=== PATIENT | female | born 1935 | race African-American/Black ===

== ENCOUNTER 2017-05-19 09:17 | Inpatient (IN) | payer MEDICARE ==
[~2017-05-19] VITALS: Ht 167.6 cm; Wt 83.5 kg
--- NOTE | ~2017-05-19 | CN ---
Consultation Report [address] [place]. [address] NAME: MANUEL MCGUIRE : 37 STATUS : ADM IN PAT#: [id number] AGE: 81 ADM/REG DATE : 05/20/17 MR#: [id number] REPORT SERV DATE: 05/20/17 DICTATED BY: NESSA ANDUJAR DATE: 05/20/17 REPORT STATUS : Draft TRANSCRIBED BY: MODL DATE: 05/20/17 PULMONARY CONSULTATION DATE OF CONSULTATION: 05/20/2017 REASON FOR CONSULTATION: Pulmonary consulted due to abnormal chest CT scan and pleural effusion. HISTORY OF PRESENT ILLNESS: Ms. Mcguire is an 81-year-old black female, lifelong nonsmoker, with a history of moderate pulmonary hypertension as well as congestive heart failure/cardiomyopathy, who was admitted complaining of two to three days of increasing lower extremity edema and a vague complaint of difficulty sleeping. As part of her admission workup, she had a chest x-ray and a CT scan of the chest that revealed a moderate right pleural effusion and a possible lung mass. So, pulmonary was consulted for assistance. The patient denies other complaints. She denies pulmonary symptoms including shortness of breath, cough, fever, chills, night sweats, sputum production, hemoptysis, or wheezing. She reports a good appetite with ongoing recent weight gain. She denies prior pulmonary diagnosis or outpatient pulmonary medications. PAST MEDICAL HISTORY: 1. Lifelong nonsmoker. 2. Moderate pulmonary hypertension. 3. Cardiomyopathy/congestive heart failure with recent echocardiogram revealing an ejection fraction of 36% (04/24/2016). 4. Moderate tricuspid regurgitation. 5. Hypertension. 6. Diabetes mellitus. 7. Previous basal ganglia stroke with some residual speech deficits and vague left-sided weakness. 8. Multinodular goiter with several large nodules noted on thyroid ultrasound done on 05/10/2017. Outpatient biopsy was planned. 9. Atrial fibrillation, on chronic anticoagulation-now on aspirin only. 10.Chronic kidney disease. 11.Appendectomy. 12.Previous toe amputation. 13.Partial colectomy secondary to large bowel obstruction. 14.Hysterectomy. FAMILY HISTORY: She denies a family history of pulmonary diseases. Consultation Report [address] [place]. [address] NAME: MANUEL MCGUIRE : 37 STATUS : ADM IN [facility]#: [id number] AGE: 81 ADM/REG DATE : 05/20/17 MR#: [id number] REPORT SERV DATE: 05/20/17 DICTATED BY: NESSA ANDUJAR DATE: 05/20/17 REPORT STATUS : Draft TRANSCRIBED BY: KAIDEN DATE: 05/20/17 SOCIAL HISTORY: She is a lifelong nonsmoker. She denies past/present drug use, chewing tobacco, occupational exposures, or ethanol intake. She is a -her son three years ago. She had nine children, but currently has five living daughters only. MEDICATIONS: Outpatient and inpatient medications were reviewed and are as documented in the record. Notably, she is on no pulmonary medications as an outpatient. She has been on Lasix 60 mg once daily and aspirin 81 mg twice daily. ALLERGIES: SHE DENIES MEDICATION ALLERGIES. REVIEW OF SYSTEMS: A 10-point system review was conducted and is remarkable for the symptoms as described in the history of present illness. It is notable that she has no dysphagia symptoms. She denies symptoms of obstructive sleep apnea. She denies GERD symptoms. PHYSICAL EXAMINATION: VITAL SIGNS: Temperature 97.0 degrees, heart rate 62, blood pressure 152/71, respiratory rate 20, room air oxygen saturation 96%. GENERAL: Pleasant elderly black female. Appears alert, oriented, no apparent distress. HEENT: Normocephalic. Atraumatic. There is no scleral icterus. The conjunctivae are clear. The oropharynx is clear. NECK: Supple. No lymphadenopathy was noted. LUNGS: Good effort. There are diminished breath sounds throughout with the right being worse than the left. The lungs are clear to auscultation bilaterally. HEART: Irregularly irregular. ABDOMEN: Soft. Nontender. Nondistended. There are normal bowel sounds in all four quadrants. BILATERAL EXTREMITIES: There is trace pretibial edema, but no cyanosis or clubbing were noted. SKIN: No rashes were noted. NEUROLOGICAL: A very limited exam was conducted. She has minimal left-sided weakness. She also has a notable speech defect. LABORATORY RESULTS: The labs were reviewed and are as documented in the record. Notable labs include a white blood cell count of 6.7. The procalcitonin is 0.08. The BNP is 843.2. The troponin on admission was 0.10 that has decreased to 0.08 on repeat check. IMAGING: The chest x-ray done this admission revealed a right pleural effusion, but no infiltrates, nodules, or cardiomegaly. A CT scan of the chest without contrast done this admission revealed a moderate right pleural effusion. There is a right infrahilar opacity/consolidation. There is mild cardiomegaly. The thyroid gland is enlarged. Consultation Report [place] [address] [place]. [address] NAME: MANUEL MCGUIRE : 37 STATUS : ADM IN PAT#: [id number] AGE: 81 ADM/REG DATE : 05/20/17 MR#: [id number] REPORT SERV DATE: 05/20/17 DICTATED BY: NESSA ANDUJAR DATE: 05/20/17 REPORT STATUS : Draft TRANSCRIBED BY: KAIDEN DATE: 05/20/17 ASSESSMENT AND PLAN: Ms. Mcguire is an 81-year-old black female, lifelong nonsmoker, with a right pleural effusion, atrial fibrillation, an elevated BNP, and a possible right infrahilar mass. She does have an opacity/consolidation noted on CT, but she does have significant pleural effusion on the right side as well. There is no evidence of active pulmonary infection as her procalcitonin is normal, and she is asymptomatic along with her normal white count. Her pleural effusion may be related to her volume status, but it is unilateral and the etiology is unknown. She does have an elevated BNP and diuresis is ongoing. Recommend rechecking a chest x-ray in the morning. If her effusion is unchanged or minimally decreased in size, then recommend thoracentesis per our service. We would recheck chest imaging after her thoracentesis to re-evaluate the right infrahilar area as well as the right lower lobe. I discussed this at length with the patient and her daughter at the bedside, and they both agree to this plan. With regard to her thyroid nodules, I would consider a workup while she is here as an inpatient. Thank you very much for this consultation. Further recommendations to follow dependent on results of additional testing. GILLIAN/KAIDEN Nessa Andujar M.D. / [id number] CC: Stephany Schmid
--- NOTE | ~2017-05-19 | DS ---
Discharge Summary [facility] [address] [place]. [address] NAME: MANUEL MCGUIRE : 37 STATUS : DIS IN PAT#: [id number] AGE: 82 ADM/REG DATE : 05/20/17 MR#: [id number] REPORT SERV DATE: 05/25/17 DICTATED BY: NAHUN CAMPOS DATE: 05/24/17 REPORT STATUS : Draft TRANSCRIBED BY: MODL DATE: 05/24/17 ADMISSION DATE: 05/20/2017 DISCHARGE DATE: 05/24/2017 DISCHARGE DIAGNOSES: 1. A left transudative pleural effusion. 2. Right hilar opacity, questioned lung mass, but unlikely, will need to be followed up as an outpatient. 3. Uncontrolled hypertension. 4. Demand ischemia. 5. Systolic congestive heart failure with ejection fraction of 36% at baseline. 6. Multinodular goiter. 7. Moderate pulmonary hypertension by echo. 8. Moderate tricuspid regurgitation by echocardiogram. 9. Chronic atrial fibrillation, not on any anticoagulation. 10.Previous stroke. 11.Diabetes. 12.Chronic kidney disease, stage IV. 13.Peripheral artery disease. CONSULTANTS: Pulmonology, Nessa Smiley M.D. PROCEDURES: A right-sided ultrasound-guided thoracentesis with evacuation of 730 mL of clear yellow fluid. HOSPITAL COURSE: This is an 82-year-old lady who was admitted to the hospital with initial complaints of shortness of breath and abnormal chest x-ray. For details, please refer to excellent H and P dictated by Dr. Zafar Palencia. In summary, the patient was admitted to the hospital and she was seen by Pulmonology. The patient was treated with IV diuretic therapy and eventually underwent a right-sided thoracentesis with evacuation of transudative pleural effusion. The patient was also seen by Cardiology, who felt that she was stable from cardiac standpoint and the minimally elevated troponins were due to demand ischemia. After the thoracentesis, the patient was feeling much better and she was very stable on room air. The patient was cleared for discharge from Pulmonology also. Also of note, the patient was noted to have a multinodular goiter and an ultrasound revealed two nodules that should be biopsied. The patient was to be set up for biopsy prior to discharge, however, as it is a mostly an outpatient procedure, she could not have it done as an inpatient, but she does have an appointment to have it done as an outpatient with Pathology. The patient is now being discharged home with home health with close outpatient followup plans. DISPOSITION: Home. DISCHARGE MEDICATIONS: No changes. FOLLOWUP: 1. Please follow up with PCP in the next one to two weeks. Discharge Summary [place] [id number] [facility] [place] [address] NAME: MANUEL MCGUIRE : 37 STATUS : DIS IN PAT#: [id number] AGE: 82 ADM/REG DATE : 05/20/17 MR#: [id number] REPORT SERV DATE: 05/25/17 DICTATED BY: NAHUN CAMPOS DATE: 05/24/17 REPORT STATUS : Draft TRANSCRIBED BY: KAIDEN DATE: 05/24/17 2. Please follow up with Pathology for biopsy as instructed. Total of 35 minutes spent in coordinating this patient's discharge today. ROSANNA/KAIDEN Nahun Campos MD / [id number] CC: Nahun Campos MD [facility] [employer]
--- NOTE | ~2017-05-19 | HP ---
History And Physical [place] [id number] [facility] [place]. [address] NAME: MANUEL MCGUIRE : 37 STATUS : ADM IN [facility]#: [id number] AGE: 81 ADM/REG DATE : 05/19/17 MR#: [id number] REPORT SERV DATE: 05/19/17 DICTATED BY: ISSAC PALENCIA DATE: 05/19/17 REPORT STATUS : Draft TRANSCRIBED BY: MODL DATE: 05/19/17 DATE OF ADMISSION: 05/19/2017 CHIEF COMPLAINT: This is an 81-year-old female who was triaged in the emergency room today, 05/19/2017 at 0935 hours with a chief complaint of weakness and insomnia. Admission vital signs, blood pressure 201/95, temperature 97.8, pulse 80, respirations 20, and O2 saturation 100% on room air. After evaluation in the emergency room, she was thought to have acute systolic congestive heart failure with an abnormal troponin and chest x-ray. She was referred to the Hospitalist Service for further evaluation. She was placed in observation status and sent to [address] [place] [address], where she is now seen by the undersigned. The history is obtained from the patient and from review of records on [employer] and [employer]. HISTORY OF PRESENT ILLNESS: The patient indicates to me that she has not been able to sleep at night, but has been sleepy during the day. She denies any shortness of breath, cough, or chest pain. She has not had orthopnea or paroxysmal nocturnal dyspnea. She has noted some puffiness to her legs. She has not had any headache, earache, sore throat, or nasal drainage. She has not had any trouble chewing or swallowing. She has not noticed any weakness in either arm or leg that is new or new numbness or tingling. She has not had anorexia, nausea, heartburn, vomiting, bloating, constipation, diarrhea, or rectal bleeding. She has not noted any change in her urinary pattern and particularly has not noticed any burning with urination or bleeding. She has had no vaginal discharge or bleeding. She has not had any one joint that has been tender. She has no history of cancer, VTE, COPD, sleep apnea, or known myocardial infarction. She has not had a previous seizure, pancreatitis, cirrhosis. PAST MEDICAL HISTORY: Her other medical history includes: 1. Cardiomyopathy. Her echocardiogram 04/24/2016 with ejection fraction of 36%. 2. Moderate pulmonary hypertension by echo. 3. Moderate TR by echo. 4. Systemic hypertension. 5. Multinodular goiter with several lobe nodules identified on ultrasound imaging, 05/10/2017. Biopsy recommended. 6. Previous basal ganglia stroke. 7. Chronic atrial fibrillation. Discharged from hospital last year on Eliquis, transitioned to aspirin per primary care. 8. Diabetes. 9. CKD 4. 10.Previous low TSH. History And Physical [address] [address] NAME: MANUEL MCGUIRE : 37 STATUS : ADM IN [facility]#: [id number] AGE: 81 ADM/REG DATE : 05/19/17 MR#: [id number] REPORT SERV DATE: 05/19/17 DICTATED BY: ISSAC PALENCIA DATE: 05/19/17 REPORT STATUS : Draft TRANSCRIBED BY: KAIDEN DATE: 05/19/17 PAST SURGICAL HISTORY: Hysterectomy, appendectomy, toe amputation, large bowel obstruction with partial colectomy. ALLERGIES OR INTOLERANCE: None. HOME MEDICATIONS: Amlodipine 10 mg daily, aspirin 81 mg twice daily, carvedilol 25 mg twice daily, Lasix 60 mg daily, Glucotrol 5 mg daily, Januvia 100 mg daily. SOCIAL HISTORY: She currently lives with her daughter. No alcohol or tobacco use. Previously lived in [place]. She has five daughters who are living and well. She had four sons, three with KS and one with heart failure. FAMILY HISTORY: Mother with heart failure. Father , cause unknown. A brother with some type of cancer. A sister living and well. REVIEW OF SYSTEMS: Complete, done with the patient and negative except as noted above. PHYSICAL EXAMINATION: VITAL SIGNS: Admission ED vital signs, see above. Admission floor vital signs, O2 saturation 94% on 2 L, blood pressure 188/89, temp 96, pulse 81, respirations 24, weight is 88.9 kg. GENERAL: This is a stated age-appearing female who is alert, conversant, appropriate. SKIN: Warm and dry. No rash, petechiae, or ecchymoses. NODES: No palpable axillary, cervical, or inguinal. HEENT: Atraumatic with symmetric facies. She has proptosis. Lids, sclerae, and conjunctivae negative except for muddy sclerae and arcus. Pupils are equal, round, and reactive to light. Extraocular eye movements intact. No nystagmus. Hearing intact. External ears negative. Ear canals, ceruminous, cannot see TMs. Nose negative. Anterior nares clear. Lips, gums, mucosa, hard and soft palates, posterior pharynx, and tongue negative. She is edentulous. NECK: Visually very enlarged thyroid, confirmed with palpation. Large left lobe, larger than right. Nodular, but nontender to palpation. Trachea nontender to palpation. No palpable adenopathy. BACK: No CVA or spinal tenderness to percussion. LUNGS: Diminished breath sounds right base. No audible rales. Left lung clear. Normal respiratory effort. HEART: Irregular rhythm. No audible murmur, gallop, rub, or click. Pulses 2+ radial, carotid, femoral. Absent popliteal, dorsalis pedis and posterior tibial. ABDOMEN: Healed midline scar, protuberant, mildly obese, soft to palpation. No guarding, rebound, or rigidity. Cannot feel liver, spleen, kidneys, or aortic pulsation. EXTREMITIES: Upper extremities, no cyanosis, clubbing, edema. Lower extremities, post right second toe amputation. There is 1+ pretibial edema. NEUROLOGIC: Mental status, see above. Cranial nerves 2 through 12, normal deep tendon reflexes. Symmetric triceps, biceps, knee jerk. Absent ankle jerk. Motor, moves all History And Physical [address] [address] NAME: MANUEL MCGUIRE : 37 STATUS : ADM IN [facility]#: [id number] AGE: 81 ADM/REG DATE : 05/19/17 MR#: [id number] REPORT SERV DATE: 05/19/17 DICTATED BY: ISSAC PALENCIA DATE: 05/19/17 REPORT STATUS : Draft TRANSCRIBED BY: MODL DATE: 05/19/17 extremities x4 equally and symmetrically. Normal muscle tone and muscle bulk. Sensory, intact touch and temperature. DATA: Procalcitonin 0.08. Sodium 138, potassium 4.4, chloride 104, CO2 of 26, BUN 35, creatinine 2.26, glucose 181, calcium 8.8, mag 2.2. Note, hepatic panel done on 05/03/2017 was normal except for albumin 3.2 and not repeated. Troponin is 0.10. TSH 0.949, free T4 is 1.49, free T3 is 2.34. C-reactive protein less than 2.9. BNP is 843.9. White count 6.7, hemoglobin 13.2, platelets 284,000. PTT 33.2, PT 16.2. EKG, atrial fibrillation, controlled rate, nonspecific ST-segment changes, loss of anterior R-wave. Chest x-ray, right pleural effusion and/or consolidation reviewed. CT chest done post placement on , ill-defined opacity inferior to the right hilum, possible consolidated pneumonia versus neoplasm. Moderate size right pleural effusion. Cardiomegaly with left ventricular enlargement. Diffusely enlarged thyroid with calcifications. ASSESSMENT: This is an 81-year-old female with: 1. Positive troponin. 2. Abnormal chest x-ray with pleural effusion and possible mass. 3. Uncontrolled systemic hypertension on admission, improving post admission. 4. Cardiomyopathy with EF 36% last year. 5. Systolic congestive heart failure. 6. Moderate pulmonary hypertension by echo in 2016. 7. Moderate tricuspid regurgitation by echo in 2016. 8. Multinodular goiter with abnormal nodules. Biopsy recommended. 9. Previous stroke. 10.Chronic atrial fibrillation, off anticoagulation except aspirin. 11.Diabetes. 12.Chronic kidney disease 4. 13.Peripheral arterial disease. PLAN: Additional IV diuretic therapy today. Follow up troponin, BNP, and BMP. Get echocardiography. Review CT images with Pulmonary for recommendations. Continue home medications. Further Cardiology evaluation pending troponins and echo. Hold anticoagulation in view of possible thoracentesis or CT-directed biopsy. Renal ultrasound imaging noting 2016 imaging negative in April, at which time her creatinine was 2.02. Check paraprotein. Further diagnostic and therapeutic considerations pending above. DD/MODL Issac Palencia M.D. / [id number] History And Physical [address] [place]. [address] NAME: MANUEL MCGUIRE : 37 STATUS : ADM IN PAT#: [id number] AGE: 81 ADM/REG DATE : 05/19/17 MR#: [id number] REPORT SERV DATE: 05/19/17 DICTATED BY: ISSAC PALENCIA DATE: 05/19/17 REPORT STATUS : Draft TRANSCRIBED BY: KAIDEN DATE: 05/19/17 CC: Issac Palencia M.D. [facility]
[~2017-05-19 09:17] MED LIST: ALEVE220 MG PO; CAT1 PO; COREG25 PO; DIABETA5 PO; ELIQUIS 2.5 MG2.5 MG PO; GLUCOPHAGE1000 MG PO; L40 PO; NORV5 PO; PLAVIX PO; PRAVACHOL40 MG PO; VITAMIN B-12 OTC PO; VITAMIN B-121000 MC1 SL; VITAMIN D OTC PO; VITAMIN D400 UNI1 PO
[2017-05-19 11:18] LABS: BASOPHILS 0.2 %; BASOPHILS ABSOLUTE 0.01 10/3/uL (0.0-0.16); EOSINOPHILS 1.5 %; HEMATOCRIT 38.9 % (36.0-48.0); HEMOGLOBIN 13.2 g/dL (12.0-16.0); IMMATURE GRANULOCYTES 0.2 %; IMMATURE GRANULOCYTES ABSOLUTE 0.01 10/3/uL (0.0-0.11); LYMPHOCYTES 21.2 %; LYMPHOCYTES ABSOLUTE 1.41 10/3/uL (0.67-4.30); MANUAL DIFF NO %; MEAN CORPUS HGB CONC 33.9 g/dL (32.0-36.0); MEAN CORPUSCULAR HEMOGLOB 29.3 pg (26.0-34.0); MEAN CORPUSCULAR VOLUME 86.4 fL (80-100); MEAN PLATELET VOLUME 9.6 fL (9.2-13.0); MONOCYTES 7.1 %; MONOCYTES ABSOLUTE 0.47 10/3/uL (0.21-1.20); NEUTROPHILS 69.8 %; NEUTROPHILS ABSOLUTE 4.66 10/3/uL (2.02-8.40); PLATELET COUNT 284 10/3/uL (150-400); RBC DISTRIBUTION WIDTH 15.1 % (12.0-16.0); WHITE BLOOD CELLS 6.7 10/3/uL (4.5-10.5)
[2017-05-19 11:24] LABS: INTERNATIONAL NORMAL RATI 1.3 UNITS (-); PARTIAL THROMBO TIME 33.2 SEC (22.5-37.2)
[2017-05-19 11:26] LABS: PROTIME (NOT ORD) 16.2 SEC (12.0-14.5)
[2017-05-19 11:32] LABS: CALCIUM, SERUM 8.8 MG/DL (8.5-10.4); CHLORIDE, SERUM 104 MMOL/L (96-112); CO2 (CARBON DIOXIDE) 26 MMOL/L (24-34); CREATININE 2.26 MG/DL (0.55-1.02); GFR AFRICAN AMERICAN 23 ML/MIN (>=60); GFR NON AFRICAN AMERICAN 20 ML/MIN (>=60); GLUCOSE, SERUM 181 MG/DL (60-99); POTASSIUM, SERUM 4.4 MMOL/L (3.5-5.3); SODIUM, SERUM 138 MMOL/L (135-148)
[2017-05-19 11:33] LABS: BUN (BLOOD UREA NITROGEN) 35 MG/DL (6-23)
[2017-05-19 11:34] LABS: CHEST PAIN PROFILE TAT 0 Hrs 22 Mins
[2017-05-19] MEDS ORDERED: NORV10 PO (11:59)
[2017-05-19] MEDS ORDERED: COREG25 PO (11:59)
[2017-05-19] MEDS ORDERED: HALF81 PO (12:00)
[2017-05-19] MEDS ORDERED: JANUVIA100 MG PO (12:00)
[2017-05-19] MEDS ORDERED: L20 PO (12:00)
[2017-05-19] MEDS ORDERED: GLUCOTROL5 PO (12:00)
[2017-05-19 17:30] LABS: C-REACTIVE PROTEIN <2.9 MG/L (<8.0)
[2017-05-19 17:33] LABS: FREE T4 1.49 NG/DL (0.76-1.46); ULTRASENSITIVE TSH 0.949 MCIU/ML (0.358-3.740)
[2017-05-19 17:34] LABS: T3 UPTAKE 36 % (30-45)
[2017-05-19 17:47] LABS: PROCALCITONIN 0.08 ng/mL (<0.5)
[2017-05-20 06:17] LABS: BUN (BLOOD UREA NITROGEN) 35 MG/DL (6-23); CHLORIDE, SERUM 104 MMOL/L (96-112); CO2 (CARBON DIOXIDE) 28 MMOL/L (24-34); CREATININE 2.02 MG/DL (0.55-1.02); GFR AFRICAN AMERICAN 26 ML/MIN (>=60); GFR NON AFRICAN AMERICAN 23 ML/MIN (>=60); POTASSIUM, SERUM 4.2 MMOL/L (3.5-5.3); SODIUM, SERUM 139 MMOL/L (135-148)
[2017-05-20 06:19] LABS: GLUCOSE, SERUM 108 MG/DL (60-99); TROPONIN I 0.08 NG/ML (<0.05)
[2017-05-21 04:47] LABS: BASOPHILS 0.1 %; BASOPHILS ABSOLUTE 0.01 10/3/uL (0.0-0.16); EOSINOPHILS 1.7 %; EOSINOPHILS ABSOLUTE 0.12 10/3/uL (0.0-0.53); HEMOGLOBIN 13.5 g/dL (12.0-16.0); IMMATURE GRANULOCYTES 0.4 %; IMMATURE GRANULOCYTES ABSOLUTE 0.03 10/3/uL (0.0-0.11); LYMPHOCYTES 22.3 %; LYMPHOCYTES ABSOLUTE 1.58 10/3/uL (0.67-4.30); MANUAL DIFF NO %; MEAN CORPUS HGB CONC 33.8 g/dL (32.0-36.0); MEAN PLATELET VOLUME 10.3 fL (9.2-13.0); MONOCYTES 8.5 %; NEUTROPHILS ABSOLUTE 4.75 10/3/uL (2.02-8.40); PLATELET COUNT 247 10/3/uL (150-400); RBC DISTRIBUTION WIDTH 15.2 % (12.0-16.0); RED CELL COUNT 4.65 10/6/uL (4.0-5.6); WHITE BLOOD CELLS 7.1 10/3/uL (4.5-10.5)
[2017-05-21 04:52] LABS: INTERNATIONAL NORMAL RATI 1.2 UNITS (-); PARTIAL THROMBO TIME 32.7 SEC (22.5-37.2)
[2017-05-21 05:00] LABS: BUN (BLOOD UREA NITROGEN) 38 MG/DL (6-23); CALCIUM, SERUM 8.5 MG/DL (8.5-10.4); CHLORIDE, SERUM 101 MMOL/L (96-112); CO2 (CARBON DIOXIDE) 27 MMOL/L (24-34); CREATININE 2.26 MG/DL (0.55-1.02); GFR AFRICAN AMERICAN 23 ML/MIN (>=60); GFR NON AFRICAN AMERICAN 20 ML/MIN (>=60); GLUCOSE, SERUM 116 MG/DL (60-99); POTASSIUM, SERUM 4.4 MMOL/L (3.5-5.3); SODIUM, SERUM 136 MMOL/L (135-148)
[2017-05-21 15:37] LABS: T PROTEIN (ELECT)(NOT OR 6.8 G/DL (6.0-8.5)
[2017-05-22 09:30] LABS: INTERNATIONAL NORMAL RATI 1.2 UNITS (-); PARTIAL THROMBO TIME 31.3 SEC (22.5-37.2); PROTIME (NOT ORD) 14.9 SEC (12.0-14.5)
[2017-05-22 11:42] LABS: A/G 1.08 RATIO (0.9-2.10); ALBUMIN (ELECTRO) 3.54 GM/DL (3.2-5.5); ALPHA 1 (ELECTRO) 0.22 GM/DL (0.1-0.4); ALPHA 1 RELAT % (NOT ORD) 3.3 % (1.0-4.0); ALPHA 2 (ELECTRO) 0.83 GM/DL (0.5-1.10); ALPHA 2 RELAT % 12.2 % (4.5-26.0); BETA GLOBULIN (SPE) 0.98 GM/DL (0.60-1.30); BETA RELATIVE % 14.4 % (9.0-22.0); GAMMA GLOBULIN (SPE) 1.23 G/DL (0.70-1.60); GAMMA RELAT % 18.1 % (6.0-22.0)
[2017-05-22 15:35] LABS: BD FL SOURCE (NOT ORD) THORACIC; BODY FLUID PH (NOT ORD) 7.71 (7.60-7.65)
[2017-05-22 15:53] LABS: GLUCOSE BODY FL (NOT ORD) 108 MG/DL; LDH BODY FLUID (NOT ORD) 83 U/L
[2017-05-22 16:24] LABS: BF TOTAL CELL CT (NOT ORD 1316 /MM3; BODY FLUID RBC (NOT ORD) 3802 /MM3
[2017-05-22 16:54] LABS: BD FL LYMPH (NOT ORD) 63 %; BF BASO (NOT OF) 0 %; BF LARGE MONONUCLEAR 33 %; BODY FLUID EOS (NOT ORD) 0 %; BODY FLUID SEG (NOT ORD) 4 %
[2017-05-22 17:14] LABS: BD FL SOURCE (NOT ORD) PLEURAL
[2017-05-23 05:02] LABS: BASOPHILS 0.2 %; BASOPHILS ABSOLUTE 0.01 10/3/uL (0.0-0.16); EOSINOPHILS 1.7 %; EOSINOPHILS ABSOLUTE 0.11 10/3/uL (0.0-0.53); HEMOGLOBIN 13.3 g/dL (12.0-16.0); IMMATURE GRANULOCYTES 0.3 %; IMMATURE GRANULOCYTES ABSOLUTE 0.02 10/3/uL (0.0-0.11); LYMPHOCYTES 24.9 %; LYMPHOCYTES ABSOLUTE 1.62 10/3/uL (0.67-4.30); MEAN CORPUS HGB CONC 34.1 g/dL (32.0-36.0); MEAN CORPUSCULAR HEMOGLOB 29.3 pg (26.0-34.0); MEAN CORPUSCULAR VOLUME 85.9 fL (80-100); MEAN PLATELET VOLUME 9.9 fL (9.2-13.0); MONOCYTES 9.8 %; MONOCYTES ABSOLUTE 0.64 10/3/uL (0.21-1.20); NEUTROPHILS 63.1 %; NEUTROPHILS ABSOLUTE 4.11 10/3/uL (2.02-8.40); PLATELET COUNT 278 10/3/uL (150-400); RBC DISTRIBUTION WIDTH 14.8 % (12.0-16.0); RED CELL COUNT 4.54 10/6/uL (4.0-5.6); WHITE BLOOD CELLS 6.5 10/3/uL (4.5-10.5)
[2017-05-23 05:05] LABS: MANUAL DIFF NO %
[2017-05-23 05:15] LABS: BUN (BLOOD UREA NITROGEN) 37 MG/DL (6-23); CALCIUM, SERUM 8.4 MG/DL (8.5-10.4); CHLORIDE, SERUM 106 MMOL/L (96-112); CO2 (CARBON DIOXIDE) 25 MMOL/L (24-34); GFR AFRICAN AMERICAN 24 ML/MIN (>=60); GFR NON AFRICAN AMERICAN 20 ML/MIN (>=60); GLUCOSE, SERUM 107 MG/DL (60-99); POTASSIUM, SERUM 4.2 MMOL/L (3.5-5.3); SODIUM, SERUM 139 MMOL/L (135-148)
[2017-05-24 05:45] LABS: BASOPHILS 0.1 %; BASOPHILS ABSOLUTE 0.01 10/3/uL (0.0-0.16); EOSINOPHILS 1.8 %; EOSINOPHILS ABSOLUTE 0.13 10/3/uL (0.0-0.53); HEMATOCRIT 39.3 % (36.0-48.0); HEMOGLOBIN 13.1 g/dL (12.0-16.0); IMMATURE GRANULOCYTES 0.1 %; IMMATURE GRANULOCYTES ABSOLUTE 0.01 10/3/uL (0.0-0.11); LYMPHOCYTES 24.5 %; LYMPHOCYTES ABSOLUTE 1.78 10/3/uL (0.67-4.30); MANUAL DIFF NO %; MEAN CORPUS HGB CONC 33.3 g/dL (32.0-36.0); MEAN CORPUSCULAR VOLUME 86.9 fL (80-100); MEAN PLATELET VOLUME 9.8 fL (9.2-13.0); MONOCYTES 8.4 %; MONOCYTES ABSOLUTE 0.61 10/3/uL (0.21-1.20); NEUTROPHILS 65.1 %; NEUTROPHILS ABSOLUTE 4.73 10/3/uL (2.02-8.40); PLATELET COUNT 265 10/3/uL (150-400); RED CELL COUNT 4.52 10/6/uL (4.0-5.6); WHITE BLOOD CELLS 7.3 10/3/uL (4.5-10.5)
[2017-05-24 06:01] LABS: CALCIUM, SERUM 8.7 MG/DL (8.5-10.4); CHLORIDE, SERUM 103 MMOL/L (96-112); CO2 (CARBON DIOXIDE) 24 MMOL/L (24-34); CREATININE 2.19 MG/DL (0.55-1.02); GFR AFRICAN AMERICAN 24 ML/MIN (>=60); GFR NON AFRICAN AMERICAN 20 ML/MIN (>=60); GLUCOSE, SERUM 95 MG/DL (60-99); POTASSIUM, SERUM 4.4 MMOL/L (3.5-5.3); SODIUM, SERUM 135 MMOL/L (135-148)
[2017-05-24 06:03] LABS: BUN (BLOOD UREA NITROGEN) 42 MG/DL (6-23)
== END 2017-05-24 18:50 | disposition home health service (06) | DRG 291 ==
LOC: ER 09:17 → 6NO 12:32
PROVIDERS: Hospitalist; Internal Medicine; Physician Assistant Medical; Radiology Vascular & Interventional Radiology
PROC: 0W993ZX Drainage of Right Pleural Cavity, Percutaneous Approach, Diagnostic (ICD-10-PCS; principal; 2017-05-22)
DX: I13.0 Hypertensive heart and chronic kidney disease with heart failure and stage 1 through stage 4 chronic kidney disease, or unspecified chronic kidney disease (principal); I50.21 Acute systolic (congestive) heart failure; N18.4 Chronic kidney disease, stage 4 (severe); J91.8 Pleural effusion in other conditions classified elsewhere; I27.2 Other secondary pulmonary hypertension; E11.22 Type 2 diabetes mellitus with diabetic chronic kidney disease; I24.8 Other forms of acute ischemic heart disease; I69.354 Hemiplegia and hemiparesis following cerebral infarction affecting left non-dominant side; I69.398 Other sequelae of cerebral infarction; E11.65 Type 2 diabetes mellitus with hyperglycemia; E11.51 Type 2 diabetes mellitus with diabetic peripheral angiopathy without gangrene; R91.8 Other nonspecific abnormal finding of lung field; I07.1 Rheumatic tricuspid insufficiency; I48.2 Chronic atrial fibrillation; E04.2 Nontoxic multinodular goiter; I42.9 Cardiomyopathy, unspecified; Z90.710 Acquired absence of both cervix and uterus; Z90.49 Acquired absence of other specified parts of digestive tract; Z79.82 Long term (current) use of aspirin
CPT/HCPCS: 32555; 36600; 71010; 71020; 71250; 76536; 76775; 80048; 82945; 82962; 83615; 83735; 83880; 83986; 84145; 84155; 84157; 84165; 84439; 84443; 84479; 84481; 84484; 85025; 85049; 85306; 85610; 85730; 86140; 86334; 87015; 87070; 87116; 87205; 88112; 88305; 89051; 93005; 93306; 96374; 99285; A9270-GY